=== PATIENT | female | born 1960 | race African-American/Black ===

== ENCOUNTER 2022-07-02 00:53 | Emergency (ER) | payer OTHER ==
[~2022-07-02] VITALS: Ht 162.6 cm; Wt 118.0 kg
[2022-07-02 01:00] VITALS: BP 156/68
[2022-07-02] MEDS ORDERED: DEXTL PO (05:32)
[2022-07-02] MEDS ORDERED: NAPR-681 PO (05:32)
[2022-07-02] MEDS ORDERED: ALBU18HF2 IH (05:32)
== END 2022-07-02 06:22 | disposition home or self-care (01) ==
LOC: ER 00:53
DX: J20.9 Acute bronchitis, unspecified (principal); I10 Essential (primary) hypertension; E11.9 Type 2 diabetes mellitus without complications
CPT/HCPCS: 71045; 99283

== ENCOUNTER 2022-09-17 18:33 | Emergency (ER) | payer OTHER ==
[~2022-09-17] VITALS: Ht 167.6 cm; Wt 137.0 kg
[~2022-09-17 18:33] MED LIST: ALBU18HF2 IH; DEXTL PO; NAPR-681 PO
[2022-09-17 19:10] VITALS: BP 183/92
[2022-09-17] MEDS ORDERED: IBUPROFEN 600MG TABLET PO STA (19:24)
[2022-09-17] MEDS ORDERED: AMLODIPINE 10MG TABLET PO ONE (19:30)
[2022-09-17 19:51] LABS: CLARITY URINE CLEAR (CLEAR); COLOR URINE YELLOW (YELLOW); KETONES URINE NEGATIVE (NEGATIVE); LEUKOCYTE ESTERASE URINE TRACE (NEGATIVE); NITRITE URINE NEGATIVE (NEGATIVE); OCCULT BLOOD URINE NEGATIVE (NEGATIVE); PH URINE 5.5 (4.5-8.0); PROTEIN URINE NEGATIVE (NEGATIVE)
== END 2022-09-18 01:06 | disposition home or self-care (01) ==
LOC: ER 18:33
DX: R10.30 Lower abdominal pain, unspecified (principal); E11.9 Type 2 diabetes mellitus without complications; I10 Essential (primary) hypertension
CPT/HCPCS: 81003; 93005; 99284